=== PATIENT | female | born 1950 | race Caucasian/White ===

== ENCOUNTER 2022-06-28 10:05 | Outpatient (CLI) | payer MEDICARE, BC, SELFPAY ==
--- NOTE | 2022-06-28 10:15 | CRLHL7_ITS ---
For Patients: As a result of the Century Cures Act, medical imaging exams and procedure reports are released immediately into your electronic medical record. You may view this report before your referring provider. If you have questions, please contact your health care provider. BILATERAL SCREENING MAMMOGRAM WITH COMPUTER-AIDED DETECTION AND TOMOSYNTHESIS TECHNIQUE: CC and MLO views were obtained. These mammographic images have been obtained using full-field digital technique. These mammographic images were interpreted with the benefit of computer-aided detection. Breast Tomosynthesis was used in this interpretation. COMPARISON FILM: 06/27/21, 06/26/20, 06/23/19. FINDINGS: There are scattered areas of fibroglandular density IMPRESSION: There is no radiographic evidence for malignancy. ASSESSMENT: BI-RADS Category 1: Negative RECOMMENDATION: Routine screening mammogram in 1 year. A lay language report of this examination will be provided to the patient. Lavelle Diop M.D. Diagnostic Radiologist [email or web address] LILIAN/Dictated by: Lavelle Diop MD @ 06/28/2022 12:25:00 PM (Electronically Signed)
== END 2022-06-28 10:06 | disposition home or self-care (01) ==
LOC: MAMMO 10:08
PROVIDERS: PCP Internal Medicine; Visit Provider Internal Medicine
DX: Z12.31 Encounter for screening mammogram for malignant neoplasm of breast (principal)
CPT/HCPCS: 77063; 77067

== ENCOUNTER 2022-09-14 10:53 | Outpatient (CLI) | payer MEDICARE, BC, SELFPAY | END 2022-09-14 10:54 | disposition home or self-care (01) | LOC: NFLDUCREF 09-24 11:08 | PROVIDERS: PCP Internal Medicine; Visit Provider Family Medicine | DX: R30.0 Dysuria (principal); N39.0 Urinary tract infection, site not specified | CPT/HCPCS: 87086; 87186 ==

== ENCOUNTER 2023-05-22 08:04 | Outpatient (CLI) | payer MEDICARE, BC, SELFPAY | END 2023-05-22 08:05 | disposition home or self-care (01) | LOC: NFLDREF 05-28 08:00 | PROVIDERS: PCP Internal Medicine; Referring Provider Internal Medicine; Visit Provider Internal Medicine | DX: E78.5 Hyperlipidemia, unspecified (principal); I10 Essential (primary) hypertension | CPT/HCPCS: 80048; 80061 ==

== ENCOUNTER 2023-06-30 09:16 | Outpatient (CLI) | payer MEDICARE, BC, SELFPAY ==
--- NOTE | 2023-06-30 09:15 | CRLHL7_ITS ---
For Patients: As a result of the Cures Act, medical imaging exams and procedure reports are released immediately into your electronic medical record. You may view this report before your referring provider. If you have questions, please contact your health care provider. BILATERAL SCREENING MAMMOGRAM WITH COMPUTER-AIDED DETECTION AND TOMOSYNTHESIS TECHNIQUE: CC and MLO views were obtained. These mammographic images have been obtained using full-field digital technique. These mammographic images were interpreted with the benefit of computer-aided detection. Breast tomosynthesis was used in this interpretation. COMPARISON FILM: 06/28/22, 06/27/21, 06/26/20. FINDINGS: There are scattered areas of fibroglandular density. IMPRESSION: There is no radiographic evidence for malignancy. ASSESSMENT: BI-RADS Category 1: Negative RECOMMENDATION: Routine screening mammogram in 1 year. A lay language report of this examination will be provided to the patient. LAVELLE CARLIN M.D. Diagnostic Radiologist [email or web address] VANESSA/[email or web address] Transcribed: 06/30/2023, 2:[address]/Dictated by: Lavelle Carlin MD @ 06/30/2023 10:04:00 AM (Electronically Signed)
== END 2023-06-30 09:17 | disposition home or self-care (01) ==
PROVIDERS: PCP Internal Medicine; Visit Provider Internal Medicine
DX: Z12.31 Encounter for screening mammogram for malignant neoplasm of breast (principal)
CPT/HCPCS: 77063; 77067

== ENCOUNTER 2023-07-07 12:54 | Outpatient (CLI) | payer MEDICARE, BC, SELFPAY | END 2023-07-07 12:55 | disposition home or self-care (01) | LOC: RAD 12:54 | PROVIDERS: PCP Internal Medicine; Visit Provider Internal Medicine | DX: I77.810 Thoracic aortic ectasia (principal); I34.0 Nonrheumatic mitral (valve) insufficiency | CPT/HCPCS: 93306 ==

== ENCOUNTER 2024-06-10 08:25 | Outpatient (CLI) | payer MEDICARE, BC, SELFPAY ==
--- OUTSIDE RECORDS SUMMARY | 2024-06-14 16:25 | XMS_ITS | Clinical Summary ---
Author Organization [facility] Address [place], [place] [address] Care Team Providers Care Child Welfare Assistant Name Role Phone Pinky Lamas MD Primary Care Provider +1- [phone] Allergies Active Allergy Reactions Criticality Noted Date Comments Adhesive Rash 01/27/2012 Latex Rash,Contact Dermatitis 07/28/2013 Thimerosal Erythema 12/04/2007 Medications Medication Sig Dispensed Refills Start Date End Date Status multivitamin (MVI) tablet Take 1 tablet by mouth once daily. 0 01/27/2012 Active lisinopril-hydrochloro thiazide, 20-25 mg, (PRINZIDE, ZESTORETIC) 20-25 mg per tablet Take 1 tablet by mouth once daily. 0 12/04/2020 Active metoprolol succinate (TOPROL XL) 50 mg sustained-release tablet Take 1 tablet by mouth once daily. 0 12/04/2020 Active cloNIDine HCL (CATAPRES) 0.1 mg tabletIndications:Hype rtension Take 1 tablet by mouth at bedtime if needed, may repeat once for SBP > (Specify) (200). 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 Left shoulder impingement, including coracoid im pingement 01/27/2012 Scapular dyskinesis, bilateral 05/23/2011 Shoulder pain, bilateral 05/23/2011 Mild post-traumatic adhesive capsulitis, left Shoulder instability, left 05/23/2011 Unspecified essential hypertension 12/07/2007 Encounters Date Type Department Care Team Description 05/27/2024 10:00 AM CDT Office Visit [address] [place] [address] Pedro, Krystina Glover [facility] (contact and service clerks supervisor L&D) 05/27/2024 Travel 05/12/[address] [phone] Pedro, Krystina Gl[facility] 05/06/[address] [place] [address] Pedro, Krystina Glover Error-please disregard 04/14/[address] [place] [address] Pedro, Krystina Glover Questions (Lost BENITEZ) from Last 3 Months Immunizations Name Administration Dates Next Due Influenza, IIV3 (Age >=3 years) 08/03/2007 Td (Age >=7 Years) 03/06/2008 Family History Medical History Relation Name Comments Cancer Father lung, smoker Diabetes Father Heart Disease Father [place] at age 62 Hypertension Mother Osteoporosis Mother Relation Name Status Comments Father Mother Social History Tobacco Use Types Packs/Day Years Used Date Smoking Tobacco: Never Smokeless Tobacco: Never Alcohol Use Standard Drinks/Week Comments Yes 0 (1 standard drink = 0.6 oz pur e alcohol) occasionally Social Connections Answer Date Recorded Frequency of Communication with Friends and Fami ly Not on file 10/06/2021 Financial Resource Strain Answer Date R ecorded Difficulty of Paying Living Expenses Not on file 10/06/2021 Difficulty of Paying Living Expenses Not on file 10/06/2021 Sex and Gender Information Value Date Recorded Sex Assigned at Not on file Gender Identity Not on file Sexual Orientation Not on file Obstetrics History Last Filed Vital Signs Vital Sign Reading Time Taken Comments Blood Pressure 110/70 12/04/2020 2:19 PM [facility] ATTEND[facility] Pulse 63 12/04/2020 2:19 PM [facility] ATTENDANT Temperature 36.7 ??C (98 ??F) 03/09/2008 7:40 PM CDT Respiratory Rate 14 12/04/2020 2:19 PM [facility] ATTENDANT Oxygen Saturation - - Inhaled Oxygen Concentration - - Weight 66.7 kg (147 lb) 03/16/2008 11:28 AM CDT Height 169 cm (5' 6.54) 12/04/2020 2:19 PM [facility] ATTEND[facility] Body Mass Index - - Plan of Treatment Health Maintenance Due Date Last Done Comments Tdap 1962 Depression screening for age 12+ 1963 BMI (ht and wt on same day) for age 18+ 1969 Hepatitis C screening for ag e 18-79 1969 Colonoscopy through age 75 1996 Mammogram for age 45-75 1996 Zoster (shingles) series for age 50+ (1 of 2) 2001 Lipids for age 45-75 12/30/2012 12/31/2007 DEXA/DXA scan for age 65+ 2016 Medicare Wellness for age 65+ 2016 Pneumococcal series for age 65+ (1 of 1 - PCV) 2016 Tetanus booster 03/06/2018 03/06/2008 Influenza for age 65+ 06/06/2024 08/03/2007 COVID-19 vaccine series Completed 12/08/19 24, 07/08/2023, 03/04/2023, Additional history exists Procedures Procedure Name Priority Date/Time Associated Diagnosis Comments LIPID PANEL Routine 12/31/2007 8:07 AM CDT Hyperlipidemia Mixed from Last 3 Months or Most Recently Relevant to Health Maintenance Results * (ABNORMAL) LIPID PANEL (12/31/2007 8:07 AM CDT) CHOLESTEROL,TOTAL 235(H) 110 - 199 mg/dL [facility] TRIGLYCERIDES 98 <150 mg/dL [facility] HDL CHOLESTEROL 56 >40 mg/dL [facility] CHOL/HDL RATIO 4.20 <4.51 [facility] LDL CHOLESTEROL 159(H) <131 mg/dL [facility] PATIENT STATUS Fasting [facility] Blood specimen (specimen) BLOOD SPECIMEN / Unknown 12/31/2007 8:07 AM CDT 12/31/2007 8:06 AM CDT Nithya Sharon Lopez Ruppel OFFICE NURSE PRACTITIONER CHEMISTRY [facility] [address] [place] [address] from Last 3 Months or Most Recently Relevant to Health Maintenance Care Teams Child Welfare Assistant Relationship Specialty Start Date End Date Pinky Lamas MD [address] [place], [place] [phone] PCP - General Internal Medicine 05/22/11
--- OUTSIDE RECORDS SUMMARY | 2024-06-14 16:25 | XMS_ITS | Clinical Summary ---
Author Organization [facility] Address [address] [place] [address] Care Team Providers Care Warehouse Supervisor Name Role Phone Clinic, [facility] Primary Care Provider Allergies No known active allergies Medications Medication Sig Dispensed Refills Start Date End Date Status lisinopril-hydrochloro thiazide (ZESTORETIC) 10-12.5 MG tablet Take 1 tablet by mouth daily Active metoprolol tartrate (LOPRESSOR) 50 MG tablet Take 50 mg by mouth 2 times daily Active Social History Tobacco Use Types Packs/Day Years Used Date Smoking Tobacco: Never Assessed Adolescent Education Answer Date Record ed Getting School Help Needed Not on file 07/06 Sex and Gender Information Value Date Recorded Sex Assigned at Not on file Gender Identity Not on file Sexual Orientation Not on file Last Filed Vital Signs Vital Sign Reading Time Taken Comments Blood Pressure 160/88 02/28/2024 3:11 PM CDT Pulse 60 02/28/2024 3:11 PM CDT Temperature 36.2 ??C (97.2 ??F) 02/28/2024 3:11 PM CD T Respiratory Rate 20 02/28/2024 3:11 PM CDT Oxygen Saturation 98% 02/28/2024 3:11 PM CDT Inhaled Oxygen Concentration - - Weight 73.5 kg (162 lb) 02/28/2024 3:11 PM CDT Height - - Body Mass Index - - Plan of Treatment Health Maintenance Due Date Last Done Comments ADVANCE CARE PLANNING 1950 ANNUAL REVIEW OF HM ORDERS 1951 CT COLONOGRAPHY 1951 DEXA 1951 FIT 1951 FLEX SIG 1951 GLUCOSE 1951 MAMMO SCREENING 1951 sDNA (Cologuard) 1951 COLONOSCOPY 1961 COLORECTAL CANCER SCREENING 1961 HEPATITIS C SCREENING 1969 LIPID 1991 RSV VACCINE (1 - 1-dose 60+ series) 2011 FALL RISK ASSESSMENT 2016 MEDICARE ANNUAL WELLNESS VISIT 2016 PHQ-2 (once per calendar year) 2023 INFLUENZA VACCINE (#1) 2024 , 07/09/2022, 08/10/2021, Additional history exists DTAP/TDAP/TD IMMUNIZATION (3 - Td or Tdap) 12/03/2031 12/03/2021, 07/03/2012, 03/06/2008, Additional history exists Pneumococcal Vaccine: 65+ Years Completed 04/23/2018, 01/29/2018, 01/28/2017 ZOSTER IMMUNIZATION Completed 12/28/2018, 04/23/2018, 07/03/2012 COVID-19 Vaccine Completed 12/08/2023, 12/2022, 03/04/2023, Additional history exists HPV IMMUNIZATION Aged Out No longer e ligible based on patient's age to complete this topic MENINGITIS IMMUNIZATION Aged Out No l onger eligible based on patient's age to complete this topic RSV MONOCLONAL ANTIBODY Aged Out No l onger eligible based on patient's age to complete this topic Care Teams Warehouse Supervisor Relationship Specialty Start Date End Date Clinic, [address] [address] (work) PCP - General 02/28/24
--- OUTSIDE RECORDS SUMMARY | 2024-06-14 16:25 | XMS_ITS | Referral Summary ---
Author Organization [facility] Address [address] [place] [address] Care Team Providers Care Fish Drier Name Role Phone Clinic, [facility] Primary Care Provider Allergies No known [...] Mass Index - - Plan of Treatment Not on file Care Teams Fish Drier Relationship Specialty Start Date End Date Clinic, [address] [address] PCP - General 02/28/24
== END 2024-06-10 08:26 | disposition home or self-care (01) ==
LOC: NFLDREF 06-14 16:24
PROVIDERS: PCP Internal Medicine; Referring Provider Internal Medicine; Visit Provider Internal Medicine
DX: M85.80 Other specified disorders of bone density and structure, unspecified site (principal); E78.5 Hyperlipidemia, unspecified; I10 Essential (primary) hypertension
CPT/HCPCS: 80048; 80061; 82306

== ENCOUNTER 2024-06-15 08:50 | Outpatient (CLI) | payer MEDICARE, BC, SELFPAY ==
--- OUTSIDE RECORDS SUMMARY | 2024-06-19 09:55 | XMS_ITS | Clinical Summary ---
Author Organization [facility] Address [address] [place] [address] Care Team Providers Care Talent Analyst Name Role Phone Clinic, [facility] Primary Care Provider Allergies No known active [...] 1961 HEPATITIS C SCREENING 1969 LIPID 1991 FALL RISK ASSESSMENT 2016 MEDICARE ANNUAL WELLNESS VISIT 2016 PHQ-2 (once per calendar year) 2023 INFLUENZA VACCINE (#1) 2024 , 07/09/2022, 08/10/2021, Additional history exists RSV VACCINE (1 - 1-dose 75+ series) 2026 DTAP/TDAP/TD IMMUNIZATION (3 - Td or Tdap) [...] age to complete this topic Care Teams Talent Analyst Relationship Specialty Start Date End Date Clinic, [address] [address] (work) [facility] - General 02/28/24
--- OUTSIDE RECORDS SUMMARY | 2024-06-19 09:55 | XMS_ITS | Clinical Summary ---
Author Organization [facility] Address [place], [place] [address] Care Team Providers Care Vp Outcomes Name Role Phone Pinky Lamas MD Primary Care Provider +1- [phone] Allergies Active Allergy Reactions Criticality Noted Date [...] Description 05/27/2024 10:00 AM CDT Office Visit [address] [place] [address] Pedro, Krystina Gl[facility] (cupola charger L&D) 05/27/2024 Travel 05/12/[address] [phone] Pedro, Krystina [facility] 05/06/[address] [place] [address] Pedro, Krystina Glover Error-please disregard 04/14/[address] [place] [address] Pedro, Krystina Glover Questions (Lost BENITEZ) from Last 3 Months Immunizations Name Administration Dates Next Due Influenza, IIV3 (Age >=3 years) 08/03/2007 Td (Age >=7 Years) 03/06/2008 Family History Medical History Relation Name Comments Cancer Father lung, smoker Diabetes Father Heart Disease Father [place] at age 62 Hypertension Mother Osteoporosis Mother [...] Comments Blood Pressure 110/70 12/04/2020 2:19 PM MARKETING TEAM LEAD Pulse 63 12/04/2020 2:19 PM MARKETING TEAM LEAD Temperature 36.7 ??C (98 ??F) 03/09/2008 7:40 PM CDT Respiratory Rate 14 12/04/2020 2:19 PM MARKETING TEAM LEAD Oxygen Saturation - - Inhaled Oxygen Concentration - - Weight 66.7 kg (147 lb) 03/16/2008 11:28 AM CDT Height 169 cm (5' 6.54) 12/04/2020 2:19 PM MARKETING TEAM LEAD Body Mass Index - - Plan of [...] CDT) CHOLESTEROL,TOTAL 235(H) 110 - 199 mg/dL [facility] TRIGLYCERIDES 98 <150 mg/dL [facility] HDL CHOLESTEROL 56 >40 mg/dL [facility] CHOL/HDL RATIO 4.20 <4.51 [facility] LDL CHOLESTEROL 159(H) <131 mg/dL [facility] PATIENT STATUS Fasting [facility] Blood specimen (specimen) BLOOD SPECIMEN / Unknown 12/31/2007 8:07 AM CDT 12/31/2007 8:06 AM CDT Nithya Sharon Lopez Ruppel RESIDENCY DIRECTOR CHEMISTRY [facility] [address] [place] [address] from Last 3 Months or Most Recently Relevant to Health Maintenance Care Teams Vp Outcomes Relationship Specialty Start Date End Date Pinky Lamas MD [address] [place], [place] [phone] PCP - General Internal Medicine 05/22/11
--- OUTSIDE RECORDS SUMMARY | 2024-06-19 09:55 | XMS_ITS | Referral Summary ---
Author Organization [facility] Address [address] [place] [address] Care Team Providers Care Manager Company Name Role Phone Clinic, [facility] Primary Care Provider Allergies No known [...] of Treatment Not on file Care Teams Manager Company Relationship Specialty Start Date End Date Clinic, [address] [address] PCP - General 02/28/24
== END 2024-06-15 08:51 | disposition home or self-care (01) ==
LOC: NFLDREF 06-19 09:53
PROVIDERS: PCP Internal Medicine; Referring Provider Internal Medicine; Visit Provider Nurse Practitioner
DX: N30.01 Acute cystitis with hematuria (principal)
CPT/HCPCS: 87086

== ENCOUNTER 2024-06-23 23:51 | Emergency (ER) | payer MEDICARE, BC, SELFPAY ==
[2024-06-23 23:56] VITALS: BP 210/114; PULSE 56; RESP 16; TEMP 36.2; O2SAT 16; BMI 23.9
[2024-06-24 00:16] LABS: Appearance Urine Cloudy (Clear); Bilirubin Urine 2+ (Negative); Blood Urine 3+ (Negative); Color Urine Orange (Yellow); Glucose Urine 1+ (Negative); Ketones Urine 1+ (Negative); Leukocyte Esterase Urine 3+ (Negative); Nitrite Urine Positive (Negative); Protein Urine 3+ (Negative); Urobilinogen Urine >=8.0 (0.2-1.0)
[2024-06-24 00:50] LABS: Bacteria Urine Moderate; RBC Urine >100 (0-2); Squamous Epithelial Cell Urine Few (None-Few); WBC Urine 50-100 (0-5)
--- NOTE | 2024-06-24 00:57 | ED_ITS ---
HPI - General Adult General Chief complaint: Urogenital Problems, Female Stated complaint: UTI Time Seen by Provider: 06/24/24 00:59 History of Present Illness HPI narrative: Had UTI a week ago and was seen in urgent care, started on antibiotics. Called two days later and was told to stop them because there was no culture growth. On Friday, symptoms re?appeared including urgency, burning, frequency. Took AZO which helped. Drinking extra fluids. Now having lower abdominal discomfort and bloating that is very uncomfortable along with the frequency. 73-year-old woman presenting to the emergency department with concern of lower abdominal discomfort and bloating. She is experiencing frequency. No fever. On 06/15 was seen with a diagnosis of cystitis initiated on Macrobid. Apparently when urine culture was negative was told to discontinue the Macrobid. She had gotten a little better. Three days ago then symptoms returned with frequency urgency some dysuria. Treating with azo. Hydrating. Urine culture from September of 2022 shows broad sensitivity. Related Data Home Medications ?Medication ?Instructions ?Recorded ?Confirmed Lactobacillus 1 cap PO DAILY 06/20/22 06/15/24 acidophilus-Bifidobac.animalis 2.5 billion cell capsule (Daily Probiotic) multivitamin 1 tab PO QAM 06/20/22 06/15/24 omega-3s 350 rn-oda-qxc-other 3 cap PO DAILY 06/20/22 06/15/24 qvtoo1m-txbh oil 600 mg capsule (Fish Oil) multivitamin 1 tab PO QAM 06/15/24 06/15/24 [facility] 1 tab PO DAILY 06/24/24 06/24/24 cephalexin 500 mg capsule 500 mg PO TID 06/24/24 06/24/24 Previous Rx's ?Medication ?Instructions ?Recorded estradiol 0.01% (0.1 mg/gram) 0.5 g vaginal .2-3x weekly #42.5 06/14/24 vaginal cream grams lisinopril 20 1 tab PO QDAY #90 tabs 06/14/24 mg-hydrochlorothiazide 25 mg tablet metoprolol succinate 50 mg 50 mg PO QDAY #90 tabs 06/14/24 tablet,extended release 24 hr Allergies Allergy/AdvReac Type Severity Reaction Status Date / Time latex AdvReac Intermediate Rash Verified 06/15/24 08:42 thimerosal AdvReac redness of Verified 06/15/24 08:42 eyes foaming agent AdvReac Intermediate Uncoded 06/15/24 08:42 Review of Systems Status of ROS: Reports: 6 or more systems reviewed and unremarkable except as noted in History and below [facility] Medical History History of pre-eclampsia (07/31/09) ?Z87.59 - Personal history of other complications of , childbirth and the puerperium (ICD-10) History of gestational diabetes mellitus (GDM) (07/31/09) ?Z86.32 - Personal history of gestational diabetes (ICD-10) History of Clostridium difficile colitis (07/31/09) ?Z86.19 - Personal history of other infectious and parasitic diseases (ICD- 10) Surgical History History of arthroscopic knee surgery ?Z98.890 - Other specified postprocedural states (ICD-10) History of tonsillectomy ?Z90.89 - Acquired absence of other organs (ICD-10) History of appendectomy ?Z90.49 - Acquired absence of other specified parts of digestive tract (ICD- 10) Family History Mother Colonic polyp Social History What is your current living situation?: I presently have a place to live Problems where you live: no known problems In the past 12 months, utilities in danger of being shut off: no In past 12 months, lack of transportation kept you from medical appts, meetings, work, or getting things needed for daily living: no In the past 12 mos, have been you worried that your food would run out before you had money to buy more?: never true In the past 12 mos, the food you bought just didn't last and you didn't have money to buy more?: never true Smoking Status: Never smoker How often does anyone, including family, friends and others, physically hurt you : never How often does anyone, including family, friends and others, insult or talk down to you: sometimes How often does anyone, including family, friends and others, threaten you with harm: never How often does anyone, including family, friends and others, scream or curse at you: sometimes Little interest or pleasure in doing things: not at all Feeling down, depressed, or hopeless: several days Exam Narrative: Exam Narrative: Pleasant. NAD. Blood pressure little bit elevated on arrival. Breathing easily. She is well-perfused extremities are without edema. No flank pain but there is discomfort to palpation in the suprapubic area. Const: Vital Signs, click to edit/add: Vital Signs - 24 hr 06/23/24 23:56 Temperature 97.1 F L Pulse Rate [Left P ulse Oximeter] 56 L Respiratory Rate 16 Blood Pressure [Ri ght Upper Arm] 210/114 H Pulse Oximetry 16 L Oxygen Delivery Me thod Room Air Documenting provider has reviewed patient's vital signs: yes Course Vital Signs Vital signs: Initial Vital Signs Temperature 97.1 F L 06/23/24 23:56 Temperature Source Temporal Artery Scan 06/23/24 23:56 Pulse Rate 56 L 06/23/24 23:56 Respiratory Rate 16 06/23/24 23:56 Blood Pressure 210/114 H 06/23/24 23:56 Blood Pressure Mean 146 H 06/23/24 23:56 Blood Pressure Position Sitting 06/23/24 23:56 Pulse Oximetry 16 L 06/23/24 23:56 Oxygen Delivery Method Room Air 06/23/24 23:56 Vital Signs Temperature 97.1 F L 06/23/24 23:56 Pulse Rate 56 L 06/23/24 23:56 Respiratory Rate 16 06/23/24 23:56 Blood Pressure 210/114 H 06/23/24 23:56 Pulse Oximetry 16 L 06/23/24 23:56 Oxygen Delivery Method Room Air 06/23/24 23:56 Temperature 97.1 F L 06/23/24 23:56 Pulse Rate 56 L 06/23/24 23:56 Respiratory Rate 16 06/23/24 23:56 Blood Pressure 154/90 H 06/24/24 01:26 Pulse Oximetry 16 L 06/23/24 23:56 Oxygen Delivery Method Room Air 06/23/24 23:56 Medical Decision Making MDM Narrative Medical decision making narrative: Symptoms do seem quite consistent with cystitis. Underlying history though also of vulvovaginitis. I suppose there could be some renal lesion contributing to hematuria the could cause some of this discomfort. Otherwise bladder lesion. Could be aseptic cystitis. Symptoms seem inconsistent with ureteral colic/stone. Lack of fevers reassuring. Will recheck urinalysis and treat accordingly. Urinalysis positive for nitrite. Color consistent with taking phenazopyridine. Good deal of red cells and white cells. Appears to be cystitis. In this age I think it would try to avoid a bacteriostatic antibiotic like Macrobid and would prefer cephalexin. This is available [facility]. Pending again urine culture. If culture proved to be negative would consider further genitourinary/urological evaluation. See patient discharge plan for further discussion Medical Records Medical records reviewed: Yes I reviewed the patient's medical records Lab Data Lab results reviewed: Yes I reviewed the patient's lab results Labs: Lab Results 06/24/24 Range/Units 00:02 Urine Color [place] A (Yellow) Urine Appearance Cloudy A (Clear) Urine pH 5.0 (5.0-8.5) Ur Specific [place] 1.010 (1.000-1.030) Urine Protein 3+ A (Negative) Urine Glucose (UA) 1+ A (Negative) Urine Ketones 1+ A (Negative) Urine Blood 3+ A (Negative) Urine Nitrite Positive A (Negative) Urine Bilirubin 2+ A (Negative) Urine Urobilinogen >=8.0 A (0.2-1.0) Ur Leukocyte Esterase 3+ A (Negative) Urine RBC >100 A (0-2) Urine WBC 50-100 A (0-5) Ur Squamous Epith Cells Few (None-Few) Urine Bacteria Moderate A (None) Discharge Plan Discharge Clinical Impression: Cystitis Patient Disposition: Home, Self-Care Condition: Stable Additional Instructions: Stay well hydrated. Urine culture will be pending here. We will call you if need to move in a different direction with antibiotics. Can take phenazopyridine for burning up to 200 mg 3-4 times daily. Prescribing cephalexin from [facility] as an antibiotic. Prescriptions: No Action metoprolol succinate 50 mg tablet extended release 24 hr 50 mg PO QDAY Qty: 90 3RF lisinopril-hydrochlorothiazide 20-25 mg tablet 1 tab PO QDAY Qty: 90 3RF estradiol 0.01 % (0.1 mg/gram) cream 0.5 g vaginal .2-3x weekly Qty: 42.5 2RF multivitamin Tablet 1 tab PO QAM [facility] 1 tab PO DAILY cephalexin 500 mg capsule 500 mg PO TID Daily Probiotic 2.5 billion cell capsule 1 cap PO DAILY multivitamin Tablet 1 tab PO QAM Fish Oil 350-600 mg capsule 3 cap PO DAILY Follow Up/Referrals: Pinky Lamas MD [Primary Care Provider] - Stand Alone Forms: [facility] Info Instructions
--- OUTSIDE RECORDS SUMMARY | 2024-06-24 01:22 | XMS_ITS | Referral Summary ---
Author Organization [facility] Address [address] [place] [address] Care Team Providers Care Sole Molding Machine Operator Name Role Phone Clinic, [facility] Primary Care Provider Allergies No [...] of Treatment Not on file Care Teams Sole Molding Machine Operator Relationship Specialty Start Date End Date Clinic, [address] [address] PCP - General 02/28/24
--- OUTSIDE RECORDS SUMMARY | 2024-06-24 01:22 | XMS_ITS | Clinical Summary ---
Author Organization [place] Address [address] [place] [address] Care Team Providers Care Defense Analyst Name Role Phone Clinic, [facility] Primary Care Provider Allergies No [...] age to complete this topic Care Teams Defense Analyst Relationship Specialty Start Date End Date Clinic, [address] [address] (work) [facility] - General 02/28/24
--- OUTSIDE RECORDS SUMMARY | 2024-06-24 01:22 | XMS_ITS | Clinical Summary ---
Author Organization [facility] Address [place], [place] [address] Care Team Providers Care Presidential Support Specialist Name Role Phone Pinky Lamas MD Primary Care Provider +1- [phone] Allergies Active Allergy Reactions Criticality Noted Date [...] Description 05/27/2024 10:00 AM CDT Office Visit [address] [place] [address] Pedro, Krystina Glover [facility] (program supervisor L&D) 05/27/2024 Travel 05/12/[address] [address] Pedro, Krystina Glover [facility] 05/06/[address] [place] [address] Pedro, Krystina Glover Error-please disregard 04/14/[address] [place] [address] Pedro, Krystina Glover Questions (Lost BENITEZ) from Last 3 Months Immunizations Name Administration Dates Next Due Influenza, IIV3 (Age >=3 years) 08/03/2007 Td (Age >=7 Years) 03/06/2008 Family History Medical History Relation Name Comments Cancer Father lung, smoker Diabetes Father Heart Disease Father [place] at age 62 Hypertension Mother Osteoporosis Mother [...] Comments Blood Pressure 110/70 12/04/2020 2:[address] MACHINE OPERATOR Pulse 63 12/04/2020 2:[address] MACHINE OPERATOR Temperature 36.7 ??C (98 ??F) 03/09/2008 7:40 PM CDT Respiratory Rate 14 12/04/2020 2:[address] MACHINE OPERATOR Oxygen Saturation - - Inhaled Oxygen Concentration - - Weight 66.7 kg (147 lb) 03/16/2008 11:28 AM CDT Height 169 cm (5' 6.54) 12/04/2020 2:[address] MACHINE OPERATOR Body Mass Index - - Plan of [...] CDT) CHOLESTEROL,TOTAL 235(H) 110 - 199 mg/dL [facility] TRIGLYCERIDES 98 <150 mg/dL [facility] HDL CHOLESTEROL 56 >40 mg/dL [facility] CHOL/HDL RATIO 4.20 <4.51 [facility] LDL CHOLESTEROL 159(H) <131 mg/dL [facility] PATIENT STATUS Fasting [facility] Blood specimen (specimen) BLOOD SPECIMEN / Unknown 12/31/2007 8:07 AM CDT 12/31/2007 8:06 AM CDT Nithya Sharon Lopez Ruppel PROPERTY STAFF ACCOUNTANT CHEMISTRY [facility] [address] [place] [address] from Last 3 Months or Most Recently Relevant to Health Maintenance Care Teams Presidential Support Specialist Relationship Specialty Start Date End Date Pinky Lamas MD [address] [place], [place] [id number] PCP - General Internal Medicine 05/22/11
[2024-06-24 01:26] VITALS: BP 154/90
== END 2024-06-24 01:27 | disposition home or self-care (01) ==
PROVIDERS: Emergency Provider Family Medicine; PCP Internal Medicine
DX: N30.90 Cystitis, unspecified without hematuria (principal)
CPT/HCPCS: 81001; 87086; 99283; 99284

== ENCOUNTER 2024-06-30 08:24 | Outpatient (CLI) | payer MEDICARE, BC, SELFPAY ==
--- OUTSIDE RECORDS SUMMARY | 2024-06-30 08:26 | XMS_ITS | Clinical Summary ---
Author Organization [facility] Address [place], [place] [address] Care Team Providers Care Side Puller Name Role Phone Pinky Lamas MD Primary Care Provider +1- [phone] Allergies Active Allergy Reactions Criticality Noted Date [...] Description 05/27/2024 10:00 AM CDT Office Visit [address] [place] [address] Pedro, Krystina Glover [facility] (consulting group analyst L&D) 05/27/2024 Travel 05/12/[address] [address] Pedro, Krystina Glover [facility] 05/06/[address] [place] [address] Pedro, Krystina Glover Error-please disregard 04/14/[address] [place] [address] Pedro, Krystina Glover Questions (Lost BENITEZ) from Last 3 Months Immunizations Name Administration Dates Next Due Influenza, IIV3 (Age >=3 years) 08/03/2007 Td (Age >=7 Years) 03/06/2008 Family History Medical History Relation Name Comments Cancer Father lung, smoker Diabetes Father Heart Disease Father [place] at age 62 Hypertension Mother Osteoporosis Mother [...] Comments Blood Pressure 110/70 12/04/2020 2:19 PM STEAMTABLE WORKER Pulse 63 12/04/2020 2:19 PM STEAMTABLE WORKER Temperature 36.7 ??C (98 ??F) 03/09/2008 7:40 PM CDT Respiratory Rate 14 12/04/2020 2:19 PM STEAMTABLE WORKER Oxygen Saturation - - Inhaled Oxygen Concentration - - Weight 66.7 kg (147 lb) 03/16/2008 11:28 AM CDT Height 169 cm (5' 6.54) 12/04/2020 2:19 PM STEAMTABLE WORKER Body Mass Index - - Plan of [...] - PCV) 2016 Tetanus booster 03/06/2018 03/06/2008 COVID-19 vaccine series (2023- season) 2024 12/08/2023, 07/08/2023, 03/04/2023, Additional history exists Influenza for age 65+ 06/06/2024 08/03/2007 Procedures Procedure Name Priority Date/Time Associated Diagnosis Comments LIPID PANEL Routine 12/31/2007 8:07 AM CDT Hyperlipidemia Mixed from Last 3 Months or Most Recently Relevant to Health Maintenance Results * (ABNORMAL) LIPID PANEL (12/31/2007 8:07 AM CDT) CHOLESTEROL,TOTAL 235(H) 110 - 199 mg/dL [facility] TRIGLYCERIDES 98 <150 mg/dL [facility] HDL CHOLESTEROL 56 >40 mg/dL [facility] CHOL/HDL RATIO 4.20 <4.51 [facility] LDL CHOLESTEROL 159(H) <131 mg/dL [facility] PATIENT STATUS Fasting [facility] Blood specimen (specimen) BLOOD SPECIMEN / Unknown 12/31/2007 8:07 AM CDT 12/31/2007 8:06 AM CDT Nithya Hill METER TESTER PRIMARY CHEMISTRY [facility] [address] [place] [address] from Last 3 Months or Most Recently Relevant to Health Maintenance Care Teams Side Puller Relationship Specialty Start Date End Date Pinky Lamas MD [address] [place] [address] PCP - General Internal Medicine 05/22/11
--- OUTSIDE RECORDS SUMMARY | 2024-06-30 08:27 | XMS_ITS | Clinical Summary ---
Author Organization [place] Address [address] [place] [address] Care Team Providers Care Music Mixer Name Role Phone Clinic, [facility] Primary Care Provider Allergies No known [...] 2016 PHQ-2 (once per calendar year) 2023 COVID-19 Vaccine ( season) 2024 12/08/2023, 07/08/2023, 03/04/2023, Additional history exists INFLUENZA VACCINE (#1) 2024 , 07/09/2022, 08/10/2021, Additional history exists RSV VACCINE (1 - 1-dose 75+ series) 2026 DTAP/TDAP/TD IMMUNIZATION (3 - Td or Tdap) 12/03/2031 12/03/2021, 07/03/2012, 03/06/2008, Additional history exists Pneumococcal Vaccine: 65+ Years Completed 04/23/2018, 01/29/2018, 01/28/2017 ZOSTER IMMUNIZATION Completed 12/28/2018, 04/23/2018, 07/03/2012 HPV IMMUNIZATION Aged Out No longer e ligible based on patient's age to complete this topic MENINGITIS IMMUNIZATION Aged Out No l onger eligible based on patient's age to complete this topic RSV MONOCLONAL ANTIBODY Aged Out No l onger eligible based on patient's age to complete this topic Care Teams Music Mixer Relationship Specialty Start Date End Date Clinic, [address] [address] [facility] - General 02/28/24
--- OUTSIDE RECORDS SUMMARY | 2024-06-30 08:27 | XMS_ITS | Referral Summary ---
Author Organization [place] Address [address] [place] [address] Care Team Providers Care Securities Settlement Processor Name Role Phone Clinic, [facility] Primary Care Provider Allergies No known [...] of Treatment Not on file Care Teams Securities Settlement Processor Relationship Specialty Start Date End Date Clinic, [address] [address] PCP - General 02/28/24
--- NOTE | 2024-06-30 08:30 | CRLHL7_ITS ---
For Patients: As a result of the Century Cures Act, medical imaging exams and procedure reports are released immediately into your electronic medical record. You may view this report before your referring provider. If you have questions, please contact your health care provider. DXA BONE MINERAL DENSITY STUDY Reason for exam: Osteoporosis. Current height (in): 66.5. Weight (lb): 150. Menopause age: 53. Ethnicity: White. 1. Have you had a previous hip or vertebral fracture? No. 2. Have you had any fractures during your adult life which did not result from significant trauma (e.g., auto accident)? No. 3. Did either of your parents have a hip fracture? No. 4. Do you smoke? No. 5. Have you ever taken Glucocorticoids? No. 6. Do you have rheumatoid arthritis? No. 7. Do you have secondary osteoporosis? No. 8. Do you drink 3 or more alcoholic drinks per day? No. 9. Are you being treated for osteoporosis? No. 10. Have you ever taken any of the following medications: Actonel, Evista, Fosamax, Miacalcin, Reclast, Boniva, Forteo, HRT (i.e. estrogen/hormone therapy), Protelos, Prolia, Vitamin D, Calcium, other ??? please specify. ANSWER: Yes, HRT (i.e. estrogen/hormone therapy). 11. Do you have any of the following medical conditions: Anorexia or bulimia, asthma or emphysema, end stage renal disease, hyperparathyroidism, any seizure disorders, cancer, inflammatory bowel diseases, hysterectomy, other ??? please specify. ANSWER: Yes, other - high blood pressure. 12. What was your maximum height (inches)? 68. 13. Do you perform weight bearing exercise regularly? Yes. 14. Do you regularly consume dairy products? Yes. 15. Do you drink caffeinated beverages? Yes. 16. At what age did your period start? 13. 17. Are you premenopausal? No. 18. How many full term pregnancies have you had? 2. 19. Have you ever missed your period for more than 6 months in a row (not including or menopause)? No. TECHNIQUE: Bone mineral density study was performed using the [employer]. FINDINGS: The results of the study expressed as bone mineral density (BMD) are as follows: Lumbar spine L1 to L4: BMD: 0.744 g/cm2. T-score: -2.8. Z-score: -0.5. Neck Left: BMD: 0.624 g/cm2. T-score: -2.0. Z-score: -0.1. Right: BMD: 0.616 g/cm2. T-score: -2.1. Z-score: -0.2. Total Left: BMD: 0.710 g/cm2. T-score: -1.9. Z-score: -0.3. Right: BMD: 0.720 g/cm2. T-score: -1.8. Z-score: -0.2. IMPRESSION: Osteoporosis. *Comparison exams done prior to 03/2020 were performed on different unit, IRIS-RFID. COMPARISON: Compared with scan of 03/14/2022, the bone mineral density has decreased by 3.8 percent at the spine and decreased by 2.8 percent at the hip. Compared with scan of 01/30/2017, the bone mineral density has decreased by 11.1 percent at the spine and decreased by 3.2 percent at the hip. SHOLA SEQUEIRA M.D. [email or web address] bM/Dictated by: Shola Sequeira MD @ 07/01/2024 1:35:00 PM (Electronically Signed)
== END 2024-06-30 08:25 | disposition home or self-care (01) ==
PROVIDERS: PCP Internal Medicine; Visit Provider Internal Medicine
DX: M81.0 Age-related osteoporosis without current pathological fracture (principal)
CPT/HCPCS: 77080

== ENCOUNTER 2024-07-08 13:39 | Outpatient (CLI) | payer MEDICARE, BC, SELFPAY ==
--- NOTE | 2024-07-08 13:40 | CRLHL7_ITS ---
For Patients: As a result of the Century Cures Act, medical imaging exams and procedure reports are released immediately into your electronic medical record. You may view this report before your referring provider. If you have questions, please contact your health care provider. BILATERAL SCREENING MAMMOGRAM WITH COMPUTER-AIDED DETECTION AND TOMOSYNTHESIS TECHNIQUE: CC and MLO views were obtained. These mammographic images have been obtained using full-field digital technique. These mammographic images were interpreted with the benefit of computer-aided detection. Breast tomosynthesis was used in this interpretation. COMPARISON FILM: 06/30/2023, 06/28/2022, 06/27/2021. FINDINGS: There are scattered areas of fibroglandular density. IMPRESSION: There is no radiographic evidence for malignancy. ASSESSMENT: BI-RADS Category 1: Negative RECOMMENDATION: Routine screening mammogram in 1 year. A lay language report of this examination will be provided to the patient. LAVELLE CARLIN M.D. Diagnostic Radiologist [email or web address] Transcribed: 12:[address]/Dictated by: Lavelle Carlin MD @ 07/12/2024 10:31:00 AM (Electronically Signed)
--- OUTSIDE RECORDS SUMMARY | 2024-07-08 13:42 | XMS_ITS | Clinical Summary ---
Author Organization [place] Address [address] [place] [address] Care Team Providers Care Money Counter Name Role Phone Clinic, [facility] Primary Care Provider Allergies No [...] age to complete this topic Care Teams Money Counter Relationship Specialty Start Date End Date Clinic, [address] [address] [facility] - General 02/28/24
--- OUTSIDE RECORDS SUMMARY | 2024-07-08 13:42 | XMS_ITS | Clinical Summary ---
Author Organization [facility] Address [place], [place] [address] Care Team Providers Care Fishing Manager Name Role Phone Pinky Lamas MD Primary Care Provider +1- [phone] Allergies Active Allergy Reactions Criticality Noted Date [...] Description 05/27/2024 10:00 AM CDT Office Visit [address] [place] [address] Pedro, Krystina Glover [facility] (supervisor inventory merchandising L&D) 05/27/2024 Travel 05/12/[address] [address] Pedro, Krystina Glover [facility] 05/06/[address] [place] [address] Pedro, Krystina Glover Error-please disregard 04/14/[address] [place] [address] Pedro, Krystina Glover Questions (Lost BENITEZ) from Last 3 Months Immunizations Name Administration Dates Next Due Influenza, IIV3 (Age >=3 years) 08/03/2007 Td (Age >=7 Years) 03/06/2008 Family History Medical History Relation Name Comments Cancer Father lung, smoker Diabetes Father Heart Disease Father [place] at age 62 Hypertension Mother Osteoporosis Mother [...] Comments Blood Pressure 110/70 12/04/2020 2:19 PM SODA ROOM OPERATOR Pulse 63 12/04/2020 2:19 PM SODA ROOM OPERATOR Temperature 36.7 ??C (98 ??F) 03/09/2008 7:40 PM CDT Respiratory Rate 14 12/04/2020 2:19 PM SODA ROOM OPERATOR Oxygen Saturation - - Inhaled Oxygen Concentration - - Weight 66.7 kg (147 lb) 03/16/2008 11:28 AM CDT Height 169 cm (5' 6.54) 12/04/2020 2:19 PM SODA ROOM OPERATOR Body Mass Index - - Plan [...] CDT) CHOLESTEROL,TOTAL 235(H) 110 - 199 mg/dL [facility] TRIGLYCERIDES 98 <150 mg/dL [facility] HDL CHOLESTEROL 56 >40 mg/dL [facility] CHOL/HDL RATIO 4.20 <4.51 [facility] LDL CHOLESTEROL 159(H) <131 mg/dL [facility] PATIENT STATUS Fasting [facility] Blood specimen (specimen) BLOOD SPECIMEN / Unknown 12/31/2007 8:07 AM CDT 12/31/2007 8:06 AM CDT Nithya Hill CUSTOMS HOUSE BROKER CHEMISTRY [facility] [address] [place] [address] from Last 3 Months or Most Recently Relevant to Health Maintenance Care Teams Fishing Manager Relationship Specialty Start Date End Date Pinky Lamas MD [address] [place] [address] PCP - General Internal Medicine 05/22/11
--- OUTSIDE RECORDS SUMMARY | 2024-07-08 13:42 | XMS_ITS | Referral Summary ---
Author Organization [place] Address [address] [place] [address] Care Team Providers Care Skirt Panel Assembler Name Role Phone Clinic, [facility] Primary Care Provider Allergies No [...] of Treatment Not on file Care Teams Skirt Panel Assembler Relationship Specialty Start Date End Date Clinic, [address] [address] PCP - General 02/28/24
== END 2024-07-08 13:40 | disposition home or self-care (01) ==
LOC: MAMMO 13:40
PROVIDERS: PCP Internal Medicine; Visit Provider Internal Medicine
DX: Z12.31 Encounter for screening mammogram for malignant neoplasm of breast (principal)
CPT/HCPCS: 77063; 77067

== ENCOUNTER 2024-07-23 12:59 | Outpatient (CLI) | payer MEDICARE, BC, SELFPAY ==
--- OUTSIDE RECORDS SUMMARY | 2024-07-23 13:05 | XMS_ITS | Clinical Summary ---
Author Organization [place] Address [address] [place] [address] Care Team Providers Care Sample Examiner Name Role Phone Clinic, [facility] Primary Care Provider Allergies No known [...] age to complete this topic Care Teams Sample Examiner Relationship Specialty Start Date End Date Clinic, [address] [address] [facility] - General 02/28/24
--- OUTSIDE RECORDS SUMMARY | 2024-07-23 13:05 | XMS_ITS | Referral Summary ---
Author Organization [place] Address [address] [place] [address] Care Team Providers Care Real Estate Teacher Name Role Phone Clinic, [facility] Primary Care Provider Allergies No known active [...] of Treatment Not on file Care Teams Real Estate Teacher Relationship Specialty Start Date End Date Clinic, [address] [address] PCP - General 02/28/24
--- OUTSIDE RECORDS SUMMARY | 2024-07-23 13:05 | XMS_ITS | Clinical Summary ---
Author Organization [facility] Address [place], [place] [address] Care Team Providers Care Cat Operator Name Role Phone Pinky Lamas MD Primary Care Provider +1- [phone] Allergies Active Allergy Reactions Criticality Noted Date [...] Description 05/27/2024 10:00 AM CDT Office Visit [address] [address] Pedro, Krystina Glover [facility] (set up mechanic crown assembly machine L&D) 05/27/2024 Travel 05/12/[address] [address] Pedro, Krystina Glover [facility] 05/06/[address] [address] Pedro, Krystina Glover Error-please disregard from Last 3 Months Immunizations Name Administration Dates Next Due Influenza, IIV3 (Age >=3 years) 08/03/2007 Td (Age >=7 Years) 03/06/2008 Family History Medical History Relation Name Comments Cancer Father lung, smoker Diabetes Father Heart Disease Father [place] at age 62 Hypertension Mother Osteoporosis Mother [...] Comments Blood Pressure 110/70 12/04/2020 2:19 PM BUTTON MAKER Pulse 63 12/04/2020 2:19 PM BUTTON MAKER Temperature 36.7 ??C (98 ??F) 03/09/2008 7:40 PM CDT Respiratory Rate 14 12/04/2020 2:19 PM BUTTON MAKER Oxygen Saturation - - Inhaled Oxygen Concentration - - Weight 66.7 kg (147 lb) 03/16/2008 11:28 AM CDT Height 169 cm (5' 6.54) 12/04/2020 2:19 PM BUTTON MAKER Body Mass Index - - Plan of [...] Tetanus booster 03/06/2018 03/06/2008 COVID-19 vaccine series ( season) 2024 12/08/2023, 07/08/2023, 03/04/2023, Additional history exists Influenza for age 65+ 06/06/2024 08/03/2007 Procedures Procedure Name Priority Date/Time Associated Diagnosis Comments LIPID PANEL Routine 12/31/2007 8:07 AM CDT Hyperlipidemia Mixed from Last 3 Months or Most Recently Relevant to Health Maintenance Results * (ABNORMAL) LIPID PANEL (12/31/2007 8:07 AM CDT) CHOLESTEROL,TOTAL 235(H) 110 - 199 mg/dL [facility] TRIGLYCERIDES 98 <150 mg/dL [facility] HDL CHOLESTEROL 56 >40 mg/dL [facility] CHOL/HDL RATIO 4.20 <4.51 [facility] LDL CHOLESTEROL 159(H) <131 mg/dL [facility] PATIENT STATUS Fasting [facility] Blood specimen (specimen) BLOOD SPECIMEN / Unknown 12/31/2007 8:07 AM CDT 12/31/2007 8:06 AM CDT Nithya Hill NP CHEMISTRY [facility] [address] [place] [address] from Last 3 Months or Most Recently Relevant to Health Maintenance Care Teams Cat Operator Relationship Specialty Start Date End Date Pinky Lamas MD [address] [place] [address] PCP - General Internal Medicine 05/22/11
== END 2024-07-23 13:00 | disposition home or self-care (01) ==
LOC: RAD 13:02
PROVIDERS: PCP Internal Medicine; Visit Provider Internal Medicine
DX: I77.810 Thoracic aortic ectasia (principal); I51.7 Cardiomegaly; I34.0 Nonrheumatic mitral (valve) insufficiency; M81.0 Age-related osteoporosis without current pathological fracture
CPT/HCPCS: 93306

== ENCOUNTER 2025-02-18 10:49 | Outpatient (CLI) | payer MEDICARE, BC, SELFPAY | END 2025-02-18 10:50 | disposition home or self-care (01) | LOC: NFLDREF 02-25 00:36 | PROVIDERS: PCP Internal Medicine; Referring Provider Internal Medicine | DX: N30.01 Acute cystitis with hematuria (principal) | CPT/HCPCS: 87086 ==

== ENCOUNTER 2025-03-10 07:27 | Outpatient (CLI) | payer MEDICARE, BC, SELFPAY ==
--- NOTE | 2025-03-10 08:55 | P.ANES_ITS ---
Anesthesia Charges Start Date/Time Anesthesia Start Date: 03/10/25 Anesthesia Start Time: 07:56 Stop Date/Time Anesthesia Stop Date: 03/10/25 Anesthesia Stop Time: 08:53 Summary Extremes of Age - Over 70 or under 1: ESTATE PLANNING PARALEGAL Coding CPT Codes CPT Codes: LELAND LWR INTST NDSC NOS - 60291 ([id number]) P2 - PATIENT W/MILD SYST DISEASE, QK - HOTEL OR MOTEL RECEPTIONIST 2-4 CNCRNT ANES PROC, QX - ESTATE PLANNING PARALEGAL SVC W/ MD MED DIRECTION Additional Codes: Summary - Extremes of Age - Over 70 or under 1: ESTATE PLANNING PARALEGAL ([id number])
--- NOTE | 2025-03-10 08:55 | W.ANESCHARGE ---
Anesthesia Charges Start Date/Time Anesthesia Start Date: 03/10/25 Anesthesia Start Time: 07:56 Stop Date/Time Anesthesia Stop Date: 03/10/25 Anesthesia Stop Time: 08:53 Summary Extremes of Age - Over 70 or under 1: TRIMMER CLIMBER Coding CPT Codes CPT Codes: LELAND LWR INTST NDSC NOS - 14424 ([id number]) P2 - PATIENT W/MILD SYST DISEASE, QK - BOTTOM POUNDER CEMENT SHOES 2-4 CNCRNT ANES PROC, QX - TRIMMER CLIMBER SVC W/ MD MED DIRECTION Additional Codes: Summary - Extremes of Age - Over 70 or under 1: TRIMMER CLIMBER ([id number])
--- NOTE | 2025-03-10 09:34 | W.ANESCHARGE ---
Anesthesia Charges Start Date/Time Anesthesia Start Date: 03/10/25 Anesthesia Start Time: 07:56 Stop Date/Time Anesthesia Stop Date: 03/10/25 Anesthesia Stop Time: 08:53 Summary Extremes of Age - Over 70 or under 1: MDA Coding CPT Codes CPT Codes: ANES LWR INTST NDSC NOS - 29536 ([id number]) QK - TRACK VEHICLE REPAIRER 2-4 CNCRNT ANES PROC, QX - BEAN SNAPPER SVC W/ MD MED DIRECTION, P2 - PATIENT W/MILD SYST DISEASE Additional Codes: Summary - Extremes of Age - Over 70 or under 1: MDA ([id number])
== END 2025-03-10 07:28 | disposition home or self-care (01) ==
LOC: OP CLINIC 07:29
PROVIDERS: PCP Internal Medicine; Visit Provider Surgery
DX: Z12.11 Encounter for screening for malignant neoplasm of colon (principal); Z86.0109 Personal history of other colon polyps; D12.0 Benign neoplasm of cecum; D12.2 Benign neoplasm of ascending colon; D12.5 Benign neoplasm of sigmoid colon; K64.8 Other hemorrhoids
CPT/HCPCS: 00811; 45380; 45385; 99100; J2704

== ENCOUNTER 2025-03-21 09:07 | Outpatient (CLI) | payer MEDICARE, BC, SELFPAY | END 2025-03-21 09:08 | disposition home or self-care (01) | LOC: NFLDREF 03-25 08:16 | PROVIDERS: PCP Internal Medicine; Referring Provider Internal Medicine; Visit Provider Physician Assistant | DX: R30.0 Dysuria (principal) | CPT/HCPCS: 87086 ==

== ENCOUNTER 2025-03-28 11:15 | Outpatient (RCR) | payer MEDICARE, BC, SELFPAY ==
--- NOTE | 2024-08-26 11:12 | PT.OPE ---
PT [place] Outpatient Eval PT [facility] Outpatient Eval Start: 08/23/24 17:08 Freq: Status: Active Protocol: Document 08/23/24 17:08 YAZ (Rec: 08/23/24 17:09 YAZ [id number]) E-signed By Lloyd Quiroz DPT, MS Physical Therapy Outpatient Evaluation Insurance Information Recert Due Date 11/21/24 Insurance Name Medicare B Medical Diagnosis Sacrococcygeal disorders, elsewhere classified Treating Diagnosis L SI pain, decreased B LS and LE flexibility, L anterior innominate rot, and B LE and core weakness Subjective Preferred Name Makayla Leigh Pt is an otherwise healthy 73 y.o. female who presents to PT with c/o L SI and glute max pain of insidious origin in early July 2024. Sxs began after driving to [place] following a personal training session. No injury but pt believes increasing intensity of her personal training session, increased weight and length of fins at master?s swimming practices and L meniscus surgery following a tear 2 years ago may have contributed to sxs. Denies previous SI joint pain but notes previous radiographic evidence of LS OA. Recent testing also found continued osteoporosis and high cholesterol. PMH also includes HTN and anxiety. AGGR factors : extended standing, sleeping, backwards bending, reaching into tall cabinets, extended sitting, pushing off wall during swimming turns, extended walking. ALLEV factors: heat, rest. Pt hopes to learn proper exercises and stretches to reduce sxs. Pain Comments -03/15 Current Work Status Retired Precautions Therapy Limitations/Systems Review Not Limited Objective Functional Test Performed & Score Modified OSWESTRY: 30% Assessment Assessment/Impression Objectively pt displays decreased B LS and LE flexibility, L anterior innominate rot, and B LE and core weakness. Significant limitations in LS ext with recreation of sxs. Good response to MET for L anterior innominate rotation with decreased sxs following. L glute and quad weakness also contributing to sxs. She responded well to MT, recumbent biking, stretching and strengthening exercises with decreased pain levels following today?s session. She will benefit greatly from continued skilled PT intervention to address these limitations. Primary Functional Limitations Extended standing, sleeping, backwards bending, reaching into tall cabinets, extended sitting, pushing off wall during swimming turns, extended walking Plan of Care Rehabilitation Potential Excellent Physical Therapy Goals Short-term goals to be completed in 4 weeks: 1. Pt will report ability to sleep through night without waking due to L SI pain. 2. Pt will display improved B LE strength as evidenced by performing >10 SLR of good quality to improve quality of gait. Long-term goals to be completed in 10 weeks: 1. Pt will be independent and compliant with her HEP 2. Pt will be able to return to walking >15 min with SI/ LS pain <2/10 to improve cardiovascular health. 3. Pt will display improved B glute med and max strength of >/= 4+/5 to improve quality of gait. 4. Pt will report >50% improvement in modified OSWESTRY questionnaire to significantly improve [place] to daily activities. 5. Pt will display >50% improvement in LS ext ROM to reach into overhead cabinets. Coordination/Communication With Referral Source Treatment Plan/Direct Interventions Joint Mobilization,Manual Therapy,Therapeutic Exercises Frequency/Duration 1x per week for 8-12 visits, decreasing frequency as able. Patient Will Be Discharged From Therapy Completion of LTG(s),Skills Plateau,Independent w/HEP, Independently Progressing Evaluation Billing Untimed Code Treatment Minutes 25 Complexity Moderate Certification Information Initial Certification Date 08/23/24 Ending Certification Date 11/21/24 Provider Signature Required Yes Provider Signature Shows Agreement With POC & Medical Necessity Physician NPI Number Write NPI# Here Physician Comment/Change : Physician Signature & Date Requested Please Sign/Date Here
--- OUTSIDE RECORDS SUMMARY | 2024-10-07 15:20 | XMS_ITS | Referral Summary ---
Author Organization [place] Address [address] [place] [address] Care Team Providers Care Form Tamping Machine Operator Name Role Phone Clinic, [facility] Primary Care Provider Allergies No known active allergies Medications lisinopril-hydro chlorothiazide (ZESTORETIC) 10-12.5 MG tablet Take 1 tablet by mouth daily Active metoprolol tartrate (LOPRESSOR) 50 MG tablet Take 50 mg by mouth 2 times daily Active Social History Tobacco Use Types Packs/Day Years Used Date Smoking Tobacco: Never Assessed Adolescent Education Answer Date Record ed Getting School Help Needed Not on file 07/06 Comments Unknown Sex and Gender Information Value Date Recorded Sex Assigned at Not on file Legal Sex 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 Gender Identity Not on file Sexual Orientation Not on file Last Filed Vital Signs Vital Sign Reading Time Taken Comments Blood Pressure 160/88 02/28/2024 3:11 PM CDT Pulse 60 02/28/2024 3:11 PM CDT Temperature 36.2 C (97.2 F) 02/28/2024 3:11 PM CDT Respiratory Rate 20 02/28/2024 3:11 PM CDT Oxygen Saturation 98% 02/28/2024 3:11 PM CDT Inhaled Oxygen Concentration - - Weight 73.5 kg (162 lb) 02/28/2024 3:11 PM CDT Height - - Body Mass Index - - Plan of Treatment Not on file Insurance [facility] Care Teams Form Tamping Machine Operator Relationship Specialty Start Date End Date Clinic, [facility] [address] [place] [address] PCP - General 02/28/24
--- OUTSIDE RECORDS SUMMARY | 2024-10-07 15:20 | XMS_ITS | Clinical Summary ---
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 Gender Identity Not on file Sexual Orientation [...] ASSESSMENT 2016 MEDICARE ANNUAL WELLNESS VISIT 2016 COVID-19 Vaccine ( season) 2024 12/08/2023, 07/08/2023, 03/04/2023, Additional history exists INFLUENZA VACCINE (#1) 2024 , 07/09/2022, 08/10/2021, Additional history exists PHQ-2 (once per calendar year) 2024 RSV VACCINE (1 - 1-dose 75+ series) 2026 DTAP/TDAP/TD IMMUNIZATION (3 - Td or Tdap) 12/03/2031 12/03/2021, 07/03/2012, 03/06/2008, Additional history exists Pneumococcal Vaccine: 50+ Years Completed 04/23/2018, 01/29/2018, 01/28/2017 ZOSTER IMMUNIZATION Completed 12/28/2018, 04/23/2018, 07/03/2012 HPV IMMUNIZATION Aged Out No longer e ligible based on patient's age to complete this topic MENINGITIS IMMUNIZATION Aged Out No l onger eligible based on patient's age to complete this topic RSV MONOCLONAL ANTIBODY Aged Out No l onger eligible based on patient's age to complete this topic Insurance [facility] [id number] BLUE [facility] [id number] BLUE Care Teams Upholstery Cleaner Relationship Specialty Start Date End Date Clinic, [facility] [address] [place], [place] [id number] PCP - General 02/28/24
--- NOTE | 2024-12-27 12:47 | PT.OPDN ---
PT [place] Outpatient Daily Note PT [facility] Outpatient Daily Note Start: 08/23/24 17:08 Freq: Status: Active Protocol: Document 12/27/24 12:34 YAZ (Rec: 12/27/24 12:47 YAZ [id number]) E-signed By ARTHUR GuzmanT, MS PT OP Daily Progress Note Visit Information Note Type Recert/Progress Note Visit Number 8 Insurance Authorized Visits - Physician Authorized Visits Eval and treat Insurance Information Recert Due Date 11/21/24 Insurance Name Medicare B Medical Diagnosis Sacrococcygeal disorders, elsewhere classified Treating Diagnosis L SI pain, decreased B LS and LE flexibility, L anterior innominate rot, and B LE and core weakness Subjective Preferred Name Makayla Subjective Pt returns to PT with a flare up of L SI joint pain ~5 days ago following her first pool workout and personal training session following her trip to the [facility] and the [facility]. No issues during the trip or flights. 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 Pt arrived 14 min late. Pain Comments 2-03/15 Objective Other/Pertinent Objective Gait: without AD decreased velocity with decreased LS and TS rot Posture: increased LS lordosis in standing with min R shift in standing Palpation: tenderness surrounding L SI Lumbar AROM: Standing Flex: WFL painfree Ext: 50% limited with pain SB: R WFL, L 25% limited with pain Rot: R WFL, L 25% limited with pain Hip AROM WFL all directions MMT: Hip flex: R 5/5, L 4+/5 Knee ext B 5/5 Knee flex: B 5/5 Hip ABD: R 4/5, L 4-/5 with pain Hip ext: R 5/5, L 4/5 with pain Abdominal: 4-/5 Special Tests Pelvic compression and distraction each negative SLR: (-) CELESTINE: (-) FADIR: (-) Slump: B - Hartman Udell: L LE 1/4 inch longer Supine to sit: R LE 1/4 inch longer HS 90-90: R lacking 15 deg, L lacking 24 deg Functional Test Performed & Score Modified OSWESTRY: 6% Patient Instructed in Risks/Benefits Yes Therapeutic Exercise Therapeutic Exercise Minutes (minutes) 16 Therapeutic Exercise: To Restore -LTR Functional Status -Bridging decreased to no additional component 5 x 3 -Clamshells decreased no resistance 12 x 3 -Child?s pose neutral and B directions with gentle repeated motions -Standing hip ABD and circles B at counter no resistance 8 x 3 -Seated HS stretch - Recumbent bike x 6 min L7 for warmup -Supine alt december B LE off bed 10 x 2 cueing for TrA contraction -Side stepping and monster walks no resistance 25' x 4, 2 sets -Progressed to walking december no resistance 20' x 4, 2 sets Manual Therapy Techniques Manual Therapy Minutes (minutes) 15 Manual Therapy Techniques Bilateral and single leg distraction with belt SI and distal segment-lower back mobilization into rotation end ranges. MET for L anterior innominate rot 5 x 5, 2 sets. Reviewed home tx with stick emphasizing importance Passive stretching to R and L gluteal, quadratus lumborum and ITB soft tissue. Treatment Minutes Timed Code Treatment Minutes 31 Total Treatment Time 31 Billing Units Manual Therapy Units 1 Therapeutic Exercise Units 1 Assessment/Impression Assessment/Impression Pt returns to PT with elevated L SI joint dysfunction with decreased B LS and LE flexibility and ROM, and B LE and core weakness today. Pt's trip with extended time flying and hiking appear to have contributed to sxs. Excellent response to MT with minimal sxs and resolution of innominate rot following. Instructed her to increase activity levels not pushing into elevated sxs. Pt will benefit from continued skilled PT services, resuming PT 1x per week for 6-10 additional visits to improve [place] to daily activities. Plan of Care Physical Therapy Goals Short-term goals to be completed in 4 weeks: 1. Pt will report ability to sleep through night without waking due to L SI pain. Progressing 2. Pt will display improved B LE strength as evidenced by performing >10 SLR of good quality to improve quality of gait. Progressing Long-term goals to be completed in 10 weeks: 1. Pt will be independent and compliant with her HEP. Progressing 2. Pt will be able to return to walking >15 min with SI/ LS pain <2/10 to improve cardiovascular health. Progressing 3. Pt will display improved B glute med and max strength of >/= 4+/5 to improve quality of gait. Progressing 4. Pt will report >50% improvement in modified OSWESTRY questionnaire to significantly improve [place] to daily activities. Progressing 5. Pt will display >50% improvement in LS ext ROM to reach into overhead cabinets. Progressing Daily Plan of Care Continue per POC Daily Plan of Care Comments Progress B LS and LE flexibility, and strength, as able. Recertification Information Initial Certification Date 08/23/24 Recertification Start Date 11/21/24 Recertification Due Date 02/19/25 Reasons to Continue Skilled Therapy See assessment Rehabilitation Potential Excellent Continued Plan of Care and Interventions Continued TE, NM re-ed and MT 1x per week for 6-10 additional visits working towards increasing [place] to daily activities. Provider Signature Shows Agreement With POC & Medical Necessity Physician Comment/Change Comment or Changes Physician NPI Number #
--- NOTE | 2025-02-22 12:57 | PT.OPDN ---
PT [place] Outpatient Daily Note PT [facility] Outpatient Daily Note Start: 08/23/24 17:08 Freq: Status: Active Protocol: Document 02/22/25 12:48 YAZ (Rec: 02/22/25 12:56 YAZ [id number]) E-signed By ARTHUR GuzmnaT, MS PT OP Daily Progress Note Visit Information Note Type Recert/Progress Note Visit Number 13 Insurance Authorized - Visits Physician Authorized Eval and treat Visits Insurance Information Recert Due Date 02/19/25 Insurance Name Medicare B Medical Diagnosis Sacrococcygeal disorders, elsewhere classified Treating Diagnosis L SI pain, decreased B LS and LE flexibility, L anterior innominate rot, and B LE and core weakness Subjective Preferred Name Makayla Subjective Pt reports improved L ankle and SI sxs since her last PT session with improved L ankle edema and [place] to yardwork. Ankle and LE strengthening exercises have been very helpful. Uneven surfaces and carrying objects remain challenging. Pain Comments 0-2/10 L SI 0-3/10 L Achilles, medial and lateral ankle Objective Other/Pertinent Gait: without AD improved quality with slight decreased Objective L stride length Posture: good I standing posture Palpation: tenderness surrounding L SI, mid-Achilles, with hypertonicity and TPs in L peroneals and soleus Edema: trace diffuse L ankle edema Lumbar AROM (standing) Flex: WFL pain free Ext: 25% limited with soreness end ROM SB: B WFL Rot: B WFL Hip AROM WFL all directions MMT: Hip flex: R 5/5, L 4+/5 Knee ext B 5/5 Knee flex: B 5/5 Hip ABD: R 4+/5, L 4/5 Hip ext: R 5/5, L 4+/5 Abdominal: 4-/5 Special Tests Pelvic compression and distraction each negative SLR: (-) CELESTINE: (-) FADIR: (-) Slump: B - Hartman Bazine: equal LE lengths Supine to sit: equal LE lengths HS 90-90: R lacking 14 deg, L lacking 17 deg Functional Test Modified OSWESTRY: 18% Performed & Score Patient Instructed Yes in Risks/Benefits Therapeutic Exercise Therapeutic Exercise 30 Minutes (minutes) Therapeutic Exercise -LTR : To Restore - Progressed to eversion/ inversion BTB 18 x 3 Functional Status - Bridging progressed pillow squeeze and GTB above knees 8 x 3 2 sec hold - Standing gastroc and soleus stretches 3 x 15 sec each -Clamshells progressed GTB above knees 16 x 3 -SLS progressed to pillow 20 x 3 B - Progressed hip ABD, 45 deg and circles to GTB above ankles no UE support 8 x 3 B directions - B heel raises 15 x 3 -Seated HS stretch - Verbal review of massage gun to L gastroc and soleus with good response. Manual Therapy Techniques Manual Therapy 15 Minutes (minutes) Manual Therapy Single leg distraction with belt Techniques STM/TPR L gastroc, peroneals and soleus SI and distal segment-lower back mobilization into rotation end ranges. Passive stretching to R and L gluteal, quadratus lumborum and ITB soft tissue. Treatment Minutes Timed Code Treatment 45 Minutes Total Treatment Time 45 Billing Units Manual Therapy Units 1 Therapeutic Exercise 2 Units Assessment/Impression Assessment/ Pt displays improved but continued elevation in L Impression gastroc, peroneal and soleus tightness today after significant walking, time on her feet and compensations during her recent trip due to fatigue and L SI pain. Excellent intrasession response again to MT, stretching and progression of static and dynamic balance and strengthening exercises with minimal sxs following. Instructed pt to continue slowly gradually increasing activity levels as [place], not pushing into elevated sxs and resting as needed as she recovers from this most recent flare up. 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 Pt will benefit from continued skilled PT services, decreasing to 1 visit every other week with goal of transitioning to I sx management with her HEP over the next 2-6 visits, as able. Plan of Care Physical Therapy Short-term goals to be completed in 4 weeks: Goals 1. Pt will report ability to sleep through night without waking due to L SI pain. MET 2. Pt will display improved B LE strength as evidenced by performing >10 SLR of good quality to improve quality of gait. MET Long-term goals to be completed in 24 weeks: 1. Pt will be independent and compliant with her HEP. Progressing 2. Pt will be able to return to walking >15 min with SI / LS pain <2/10 to improve cardiovascular health. Progressing 3. Pt will display improved B glute med and max strength of >/= 4+/5 to improve quality of gait. Progressing 4. Pt will report >50% improvement in modified OSWESTRY questionnaire to significantly improve [place] to daily activities. Progressing 5. Pt will display >50% improvement in LS ext ROM to reach into overhead cabinets. Progressing Daily Plan of Care Continue per POC Daily Plan of Care Progress B LS and LE flexibility, and strength, as able Comments . Recertification Information Initial 08/23/24 Certification Date Recertification 02/19/25 Start Date Recertification Due 05/19/25 Date Reasons to Continue See assessment Skilled Therapy Rehabilitation Excellent Potential Continued Plan of Continued TE, NM re-ed and MT 1 visit every other week Care and for 2-6 additional visits working towards increasing Interventions [place] to daily activities. Provider Signature POC & Medical Necessity Shows Agreement With Physician Comment/ Comment or Changes Change Physician NPI Number #
== END 2025-07-26 23:59 | disposition home or self-care (01) ==
PROVIDERS: PCP Internal Medicine; Visit Provider Internal Medicine
DX: M53.3 Sacrococcygeal disorders, not elsewhere classified (principal); Z51.89 Encounter for other specified aftercare
CPT/HCPCS: 97110; 97140; 97162

== ENCOUNTER 2025-07-15 14:35 | Outpatient (CLI) | payer MEDICARE, BC, SELFPAY ==
--- NOTE | 2025-07-15 14:40 | CRLHL7_ITS ---
For Patients: As a result of the Century Cures Act, medical imaging exams and procedure reports are released immediately into your electronic medical record. You may view this report before your referring provider. If you have questions, please contact your health care provider. INDICATION: BILATERAL SCREENING MAMMOGRAM, ASYMPTOMATIC 74 Y/O FEMALE COMPARISON: 07/08/2024, 06/30/2023, 06/28/2022 TECHNIQUE: Digital mammogram in CC and MLO projections including computer-aided detection (CAD) and tomosynthesis. BREAST COMPOSITION: The breasts are heterogeneously dense, which may obscure small masses. FINDINGS: No suspicious findings. ASSESSMENT: BI-RADS 1 Negative RECOMMENDATION: Annual screening mammogram. A lay language report of this examination will be provided to the patient. Dictated by: Yolanda Paez MD @ 07/18/2025 21:08:05 (Electronically Signed)
== END 2025-07-15 14:36 | disposition home or self-care (01) ==
LOC: MAMMO 14:37
PROVIDERS: PCP Internal Medicine; Visit Provider Internal Medicine
DX: Z12.31 Encounter for screening mammogram for malignant neoplasm of breast (principal); R92.333 Mammographic heterogeneous density, bilateral breasts
CPT/HCPCS: 77063; 77067

== ENCOUNTER 2025-08-18 08:26 | Outpatient (CLI) | payer MEDICARE, BC, SELFPAY | END 2025-08-18 08:27 | disposition home or self-care (01) | LOC: NFLDREF 08-23 21:13 | PROVIDERS: PCP Internal Medicine; Referring Provider Internal Medicine; Visit Provider Internal Medicine | DX: I10 Essential (primary) hypertension (principal); E78.5 Hyperlipidemia, unspecified; M81.0 Age-related osteoporosis without current pathological fracture | CPT/HCPCS: 80048; 80061; 82306 ==

== ENCOUNTER 2025-09-05 07:45 | Outpatient (CLI) | payer MEDICARE, BC, SELFPAY | END 2025-09-05 07:46 | disposition home or self-care (01) | PROVIDERS: PCP Internal Medicine; Visit Provider Internal Medicine | DX: I77.810 Thoracic aortic ectasia (principal); I51.7 Cardiomegaly | CPT/HCPCS: 93306 ==